=== PATIENT | female | born 1990 | race Caucasian/White ===

== ENCOUNTER 2020-05-02 08:52 | Emergency (ER) | payer OTHER ==
[~2020-05-02] VITALS: Ht 142.2 cm; Wt 77.8 kg
[2020-05-02] MEDS ORDERED: LAMO100T80 PO (09:05)
[2020-05-02] MEDS ORDERED: HYDR-3363 PO (09:05)
[2020-05-02] MEDS ORDERED: OMEP-218 PO (09:05)
[2020-05-02] MEDS ORDERED: QUET300T53 PO (09:05)
[2020-05-02] MEDS ORDERED: MELO15TA28 PO (09:05)
[2020-05-02] MEDS ORDERED: BENZ-52 PO (09:05)
[2020-05-02] MEDS ORDERED: TOPA100T12 PO (09:05)
[2020-05-02] MEDS ORDERED: KETOROLAC 30 MG/ML 1ML VIAL IV ONE (10:15)
[2020-05-02] MEDS ORDERED: NS 1,000 ML IV ONE (10:15)
[2020-05-02] MEDS ORDERED: ONDANSETRON 4MG/2ML VIAL IV ONE (10:15)
[2020-05-02 10:53] LABS: BASO # 0.1 10^3/uL (0.0-0.2); BASO % 0.5 % (0.0-1.0); EOS # 0.1 10^3/uL (0.0-0.5); EOS % 0.6 % (0.0-3.0); HEMATOCRIT 37.9 % (36.0-47.0); HEMOGLOBIN 12.2 g/dl (12.0-15.5); LYMPH % 19.4 % (24.0-44.0); MEAN CORPUSCULAR HEMOGLOBIN 26.1 pg (27.0-33.0); MEAN CORPUSCULAR HGB CONC 32.2 g/dl (32.0-36.5); MEAN CORPUSCULAR VOLUME 81.2 fl (80.0-96.0); MONO # 0.4 10^3/uL (0.0-0.8); MONO % 3.9 % (2.0-8.0); NEUTROPHILS # 7.7 10^3/uL (1.5-8.5); PLATELET COUNT, AUTOMATED 443 10^3/uL (150-450); RED BLOOD COUNT 4.67 10^6/uL (4.00-5.40); WHITE BLOOD COUNT 10.2 10^3/uL (4.0-10.0)
[2020-05-02] MEDS ORDERED: cefTRIAXone SOD 1 GM in D5W MINI-BAG PLUS 50 ML IV ONE (11:10)
[2020-05-02 11:15] LABS: ALBUMIN 3.8 GM/DL (3.2-5.2); ALT/SGPT 15 U/L (12-78); BILIRUBIN,DIRECT < 0.1 MG/DL (0.0-0.2); BILIRUBIN,TOTAL 0.2 MG/DL (0.2-1.0); BLOOD UREA NITROGEN 13 MG/DL (7-18); CARBON DIOXIDE LEVEL 21 MEQ/L (21-32); CHLORIDE LEVEL 113 MEQ/L (98-107); CREATININE FOR GFR 0.73 MG/DL (0.55-1.30); GLOMERULAR FILTRATION RATE > 60.0 (>60); GLUCOSE, FASTING 93 MG/DL (70-100); POTASSIUM SERUM 4.3 MEQ/L (3.5-5.1); SODIUM LEVEL 142 MEQ/L (136-145); TOTAL PROTEIN 7.1 GM/DL (6.4-8.2)
--- NOTE | 2020-05-02 11:42 | REP ---
INDICATION: right flank pain, dysuria (stone vs early pyelo). COMPARISON: None. TECHNIQUE: Multiple sonographic images of the kidneys bilaterally. FINDINGS: The right kidney measures 10.3 x 4.2 x 4.5 cm. Left kidney measures 10.5 x 4.6 x 5.2 cm. The kidneys are normal size. Renal cortical echogenicity is normal bilaterally. There are no renal calculi. There is no hydronephrosis. There are no solid or cystic renal masses. Bladder: The bladder is empty and cannot be evaluated. IMPRESSION: Essentially negative bilateral renal ultrasound. No renal calculi are identified. There is no hydronephrosis. No solid or cystic renal masses are identified. <Electronically signed by Vincent Taylor > 05/02/20 [id number]
[2020-05-02] MEDS ORDERED: CEFD1CAP8 PO (12:23)
[2020-05-02 12:37] VITALS: BP 103/59
== END 2020-05-02 13:15 | disposition home or self-care (01) ==
LOC: M ED 08:52
DX: N39.0 Urinary tract infection, site not specified (principal); N10 Acute pyelonephritis; Z79.899 Other long term (current) drug therapy
CPT/HCPCS: 36415; 76775; 80048; 80076; 81001; 85025; 87088; 87186; 96361; 96365; 96366; 96375; 99284; J0696; J1885; J2405

== ENCOUNTER 2020-05-03 16:13 | Emergency (ER) | payer OTHER ==
[~2020-05-03] VITALS: Ht 142.2 cm; Wt 77.8 kg
[~2020-05-03 16:13] MED LIST: BENZ-52 PO; CEFD1CAP8 PO; HYDR-3363 PO; LAMO100T80 PO; MELO15TA28 PO; OMEP-218 PO; QUET300T53 PO; TOPA100T12 PO
[2020-05-03 19:13] LABS: BASO # 0.1 10^3/uL (0.0-0.2); BASO % 0.5 % (0.0-1.0); EOS # 0.1 10^3/uL (0.0-0.5); EOS % 0.7 % (0.0-3.0); HEMATOCRIT 34.9 % (36.0-47.0); HEMOGLOBIN 11.1 g/dl (12.0-15.5); LYMPH # 2.3 10^3/uL (1.5-5.0); LYMPH % 16.1 % (24.0-44.0); MEAN CORPUSCULAR HEMOGLOBIN 25.8 pg (27.0-33.0); MEAN CORPUSCULAR HGB CONC 31.8 g/dl (32.0-36.5); MEAN CORPUSCULAR VOLUME 81.2 fl (80.0-96.0); MONO # 0.6 10^3/uL (0.0-0.8); MONO % 4.6 % (2.0-8.0); NEUTROPHILS # 10.9 10^3/uL (1.5-8.5); NEUTROPHILS % 77.5 % (36.0-66.0); PLATELET COUNT, AUTOMATED 377 10^3/uL (150-450)
[2020-05-03 19:39] LABS: HCG, SERUM QUALITATIVE NEGATIVE (NEGATIVE)
[2020-05-03 19:48] LABS: ALBUMIN 3.4 GM/DL (3.2-5.2); ALT/SGPT 14 U/L (12-78); BILIRUBIN,DIRECT < 0.1 MG/DL (0.0-0.2); BILIRUBIN,TOTAL 0.2 MG/DL (0.2-1.0); BLOOD UREA NITROGEN 13 MG/DL (7-18); CALCIUM LEVEL 8.1 MG/DL (8.5-10.1); CARBON DIOXIDE LEVEL 20 MEQ/L (21-32); CHLORIDE LEVEL 114 MEQ/L (98-107); CREATININE FOR GFR 1.04 MG/DL (0.55-1.30); GLOMERULAR FILTRATION RATE > 60.0 (>60); GLUCOSE, FASTING 78 MG/DL (70-100); SODIUM LEVEL 143 MEQ/L (136-145); THYROID STIMULATING HORMONE 0.261 uIU/ML (0.358-3.740); TOTAL PROTEIN 6.3 GM/DL (6.4-8.2)
[2020-05-03] MEDS ORDERED: ONDANSETRON 4MG/2ML VIAL IV ONE (19:55)
[2020-05-03] MEDS ORDERED: MORPHINE 4 MG/ML 1ML VIAL/SYRINGE (J2270) IV PRN (19:55)
--- NOTE | 2020-05-03 20:37 | ECGEPIP ---
[facility] - ED Test Date: 2020-05-03 Pat Name: KURT PAUL Department: Room: - Gender: Female [employer]ist: LARISSA : 1990 Requested By: NAHOMI Valentine Order Number: [id number] Reading MD: Alejo Figueroa Measurements Intervals [place] Rate: 59 P: 14 CT: 142 QRS: 61 QRSD: 90 T: 52 QT: 416 QTc: 411 Interpretive Statements Sinus bradycardia with marked sinus arrhythmia NO PRIORS FOR COMPARISON Electronically Signed on 05-03-2020 20:37:50 EDT by Alejo Figueroa
--- NOTE | 2020-05-03 21:10 | REPVR ---
PROCEDURE INFORMATION: Exam: CT Abdomen And Pelvis Without Contrast Exam date and time: 05/03/2020 8:06 PM Age: 29 years old Clinical indication: Abdominal pain; Flank; Right; Additional info: Right flank pain, dysuria TECHNIQUE: Imaging protocol: Computed tomography of the abdomen and pelvis without contrast. Radiation optimization: All CT scans at this facility use at least one of these dose optimization techniques: automated exposure control; mA and/or kV adjustment per patient size (includes targeted exams where dose is matched to clinical indication); or iterative reconstruction. COMPARISON: RENAL US 05/02/2020 11:22 AM FINDINGS: Liver: Normal. No mass. Gallbladder and bile ducts: There has been prior cholecystectomy. No biliary duct dilation. Pancreas: Normal. No ductal dilation. Spleen: Normal. No splenomegaly. Adrenal glands: Normal. No mass. Kidneys and ureters: Several punctate calyceal calculi in the both kidneys. There is an obstructing 2-3 mm calculus in the proximal right ureter with mild right hydronephrosis and perinephric/periureteral edema. No hydronephrosis on the left. Stomach and bowel: Unremarkable. No obstruction. No mucosal thickening. Appendix: No evidence of appendicitis. Intraperitoneal space: Unremarkable. No free air. No significant fluid collection. Vasculature: Unremarkable. No abdominal aortic aneurysm. Lymph nodes: Unremarkable. No enlarged lymph nodes. Urinary bladder: Unremarkable as visualized. Reproductive: Unremarkable as visualized. Bones/joints: Unremarkable. No acute fracture. Soft tissues: Unremarkable. IMPRESSION: 1. Mild right hydronephrosis with obstructing 2-3 mm calculus in the proximal right ureter. 2. Nonobstructing calyceal stones in both kidneys. Electronically signed by: Kevin Gomez On 05/03/2020 21:10:53 PM
--- NOTE | 2020-05-03 21:12 | REPVR ---
PROCEDURE INFORMATION: Exam: XR Chest Exam date and time: 05/03/2020 8:14 PM Age: 29 years old Clinical indication: Chest pain; Additional info: Altered mental status TECHNIQUE: Imaging protocol: XR of the chest Views: 2 views. COMPARISON: No relevant prior studies available. FINDINGS: Lungs: Unremarkable. No consolidation. Pleural spaces: Unremarkable. No pleural effusion. No pneumothorax. Heart/Mediastinum: Unremarkable. No cardiomegaly. Bones/joints: Unremarkable. IMPRESSION: No acute findings. Electronically signed by: Kevin Gomez On 05/03/2020 21:12:07 PM
[2020-05-03 23:01] LABS: APPEARANCE, URINE HAZY (CLEAR); BACTERIA, URINE AUTO NEGATIVE (NEGATIVE); BILIRUBIN, URINE AUTO NEGATIVE (NEGATIVE); BLOOD, URINE BLOOD 2+ (NEGATIVE); COLOR, URINE YELLOW (YELLOW); GLUCOSE, URINE (UA) AUTO NEGATIVE (NEGATIVE); KETONE, URINE AUTO NEGATIVE (NEGATIVE); LEUKOCYTE ESTERASE, URINE AUTO TRACE (NEGATIVE); MUCUS, URINE SMALL (NEGATIVE); NITRITE, URINE AUTO NEGATIVE (NEGATIVE); PROTEIN, URINE AUTO NEGATIVE (NEGATIVE); RBC, URINE AUTO 12 /HPF (0-3); SPECIFIC GRAVITY URINE AUTO 1.011 (1.002-1.035); SQUAMOUS EPITHELIAL CELL UR AU 7 /HPF (0-6); UROBILINOGEN, URINE AUTO 0.2 mg/dL (0.0-2.0); WBC, URINE AUTO 6 /HPF (0-3)
[2020-05-04] MEDS ORDERED: OXYCODONE/APAP 5MG/325MG(BULK FOR ED) 1 TABLET PO ONE
[2020-05-04] MEDS ORDERED: TAMSULOSIN 0.4 MG CAP PO ONE
[2020-05-04] MEDS ORDERED: PERC5TAB12 PO (00:02)
[2020-05-04] MEDS ORDERED: FLOM0.4C39 PO (00:02)
[2020-05-04 00:03] VITALS: BP 97/55
== END 2020-05-04 00:14 | disposition home or self-care (01) ==
LOC: M ED 16:13 → EDBD 16:13 → M ED 05-04 00:14
DX: N13.2 Hydronephrosis with renal and ureteral calculous obstruction (principal); R11.2 Nausea with vomiting, unspecified; R00.1 Bradycardia, unspecified; Z79.899 Other long term (current) drug therapy
CPT/HCPCS: 71046; 74176; 80047; 80048; 80076; 81001; 84443; 84702; 84703; 85025; 93005; 93041; 94760; 96374; 96375; 99285; J2270; J2405

== ENCOUNTER 2022-02-22 00:02 | Emergency (ER) | payer OTHER ==
[~2022-02-22] VITALS: Ht 142.2 cm; Wt 81.8 kg
[~2022-02-22 00:02] MED LIST changes: -CEFD1CAP8 PO; +CEFD300C41 PO; +FLOM0.4C39 PO; +OMEP-173 PO; -OMEP-218 PO; +PERC5TAB12 PO; -QUET300T53 PO; +QUET300T93 PO
[2022-02-22 00:43] LABS: HEMATOCRIT 36.6 % (36.0-47.0); HEMOGLOBIN 11.6 g/dl (12.0-15.5); MEAN CORPUSCULAR HEMOGLOBIN 26.3 pg (27.0-33.0); MEAN CORPUSCULAR HGB CONC 31.7 g/dl (32.0-36.5); PLATELET COUNT, AUTOMATED 398 10^3/uL (150-450); RED BLOOD COUNT 4.41 10^6/uL (4.00-5.40); WHITE BLOOD COUNT 10.7 10^3/uL (4.0-10.0)
[2022-02-22 01:04] LABS: ETHYL ALCOHOL (ETHANOL) 0.003 % (0.000-0.010); HCG, SERUM QUALITATIVE NEGATIVE (NEGATIVE)
[2022-02-22 01:05] LABS: ACETAMINOPHEN LEVEL < 2.0 UG/ML (10.0-20.0); BILIRUBIN,DIRECT < 0.1 MG/DL (<0.4); SALICYLATE LEVEL < 3.0 MG/DL (<30)
[2022-02-22 01:06] LABS: ALKALINE PHOSPHATASE 96 U/L (46-116); ALT/SGPT 14 U/L (7.0-40); AST/SGOT 15 U/L (<34); BILIRUBIN,TOTAL < 0.2 MG/DL (0.3-1.2); BLOOD UREA NITROGEN 16 MG/DL (9-23); CALCIUM LEVEL 9.1 MG/DL (8.5-10.1); CARBON DIOXIDE LEVEL 23 MMOL/L (20-31); CHLORIDE LEVEL 110 MMOL/L (98-107); CREATININE FOR GFR 0.88 MG/DL (0.55-1.30); GLOMERULAR FILTRATION RATE > 60.0 (>60); GLUCOSE, FASTING 103 MG/DL (60-100); POTASSIUM SERUM 3.8 MMOL/L (3.5-5.1); SODIUM LEVEL 142 MMOL/L (136-145)
[2022-02-22 01:07] LABS: THYROID STIMULATING HORMONE 1.298 uIU/ML (0.55-4.78)
[2022-02-22 01:23] LABS: RSV AMPLIFICATION NEGATIVE (NEGATIVE)
[2022-02-22] MEDS ORDERED: LAMO200T3 PO ×2 (02:29)
[2022-02-22] MEDS ORDERED: BENZ0.5T23 PO (02:29)
[2022-02-22] MEDS ORDERED: HYDR-3363 PO ×2 (02:29)
[2022-02-22] MEDS ORDERED: QUET300T2 PO (02:33)
[2022-02-22] MEDS ORDERED: PRAZ1CAP46 PO (02:33)
[2022-02-22] MEDS ORDERED: TOPI100T9 PO (02:33)
[2022-02-22] MEDS ORDERED: HOME MED LIST COMPLETE! XX SCH ×2 (02:35)
[2022-02-22 02:50] LABS: AMPHETAMINES LEVEL URINE NEGATIVE (NEGATIVE); BARBITURATES URINE NEGATIVE (NEGATIVE); BENZODIAZEPINES URINE NEGATIVE (NEGATIVE); COCAINE METABOLITE URINE NEGATIVE (NEGATIVE); METHADONE URINE NEGATIVE (NEGATIVE); OPIATES URINE NEGATIVE (NEGATIVE); PHENCYCLIDINE URINE NEGATIVE (NEGATIVE)
[2022-02-22 02:55] LABS: CANNABINOIDS URINE POSITIVE (NEGATIVE)
[2022-02-22 02:58] LABS: APPEARANCE, URINE MANUAL CLEAR (CLEAR); BILIRUBIN, URINE MANUAL NEGATIVE (NEGATIVE); BLOOD URINE MANUAL POSITIVE (NEGATIVE); COLOR, URINE MANUAL YELLOW (YELLOW); GLUCOSE, URINE (UA) MANUAL NEGATIVE (NEGATIVE); KETONE, URINE MANUAL NEGATIVE (NEGATIVE); LEUKOCYTE ESTERASE, URINE MAN NEGATIVE (NEGATIVE); NITRITE, URINE MANUAL NEGATIVE (NEGATIVE); PROTEIN, URINE MANUAL NEGATIVE (NEGATIVE); UROBILINOGEN, URINE MANUAL NORMAL (NORMAL)
[2022-02-22 03:07] LABS: SQUAMOUS EPITHELIAL CELL URINE SMALL AMOUNT /hpf (SMALL AMT)
[2022-02-22 03:08] LABS: BACTERIA, URINE SMALL AMOUNT; HYALINE CAST, URINE NONE SEEN /lpf (0-1); MUCUS, URINE SMALL AMOUNT (NEGATIVE)
[2022-02-22] MEDS ORDERED: ACETAMINOPHEN TAB 650MG DOSE (2X325MG) PO ONE (07:50)
[2022-02-22] MEDS ORDERED: BENZTROPINE 0.5 MG TAB PO SCH (09:00)
[2022-02-22] MEDS ORDERED: lamoTRIgine 100MG TAB PO SCH ×2 (09:00→21:00)
[2022-02-22 16:52] VITALS: BP 117/66
[2022-02-22] MEDS ORDERED: TOPIRAMATE (TopAMAX) 100 MG TAB PO SCH (21:00)
[2022-02-22] MEDS ORDERED: PRAZOSIN 1 MG CAP PO SCH (21:00)
[2022-02-22] MEDS ORDERED: QUEtiapine FUMARATE 50MG TAB PO SCH (21:00)
[2022-02-22] MEDS ORDERED: TOPIRAMATE (TopAMAX) 25 MG TAB PO SCH (21:00)
== END 2022-02-22 16:56 ==
LOC: EDBD 00:02 → M ED 00:02
DX: R45.851 Suicidal ideations (principal); F32.A Depression, unspecified; F31.9 Bipolar disorder, unspecified; F43.10 Post-traumatic stress disorder, unspecified; F12.10 Cannabis abuse, uncomplicated; Z79.811 Long term (current) use of aromatase inhibitors; Z79.899 Other long term (current) drug therapy

== ENCOUNTER 2022-12-27 11:03 | Emergency (ER) | payer OTHER ==
[~2022-12-27] VITALS: Ht 142.2 cm; Wt 87.9 kg
[~2022-12-27 11:03] MED LIST changes: -BENZ-52 PO; +BENZ0.5T2 PO; +BENZ1TAB5 PO; -CEFD300C41 PO; +CEFD300C42 PO; +LAMO200T3 PO; +PRAZ1CAP46 PO; +QUET300T2 PO; +TOPI100T9 PO
[2022-12-27] MEDS ORDERED: NS 1,000 ML IV ONE (15:10)
[2022-12-27] MEDS ORDERED: diphenhydrAMINE 50MG/ML VIAL IV ONE (15:10)
[2022-12-27] MEDS ORDERED: PROCHLORPERAZINE 10MG 2ML VIAL IV ONE (15:10)
[2022-12-27] MEDS ORDERED: KETOROLAC 30 MG/ML 1ML VIAL IV ONE (15:10)
[2022-12-27 15:38] LABS: BASO # 0.1 10^3/uL (0.0-0.2); BASO % 1.1 % (0.0-1.0); EOS # 0.2 10^3/uL (0.0-0.5); EOS % 2.8 % (0.0-3.0); HEMATOCRIT 37.2 % (36.0-47.0); HEMOGLOBIN 11.9 g/dl (12.0-15.5); LYMPH # 2.5 10^3/uL (1.5-5.0); LYMPH % 30.7 % (24.0-44.0); MEAN CORPUSCULAR HEMOGLOBIN 26.2 pg (27.0-33.0); MEAN CORPUSCULAR VOLUME 81.8 fl (80.0-96.0); MONO # 0.3 10^3/uL (0.0-0.8); MONO % 4.1 % (2.0-8.0); NEUTROPHILS % 60.7 % (36.0-66.0); PLATELET COUNT, AUTOMATED 403 10^3/uL (150-450); RED BLOOD COUNT 4.55 10^6/uL (4.00-5.40); WHITE BLOOD COUNT 8.2 10^3/uL (4.0-10.0)
[2022-12-27 15:56] LABS: ERYTHROCYTE SEDIMENTATION RATE 30 mm/hr (0-20)
[2022-12-27 16:13] LABS: C REACTIVE PROTEIN QUANTITATIV 1.7 MG/DL (<1.0); MAGNESIUM LEVEL 2.1 MG/DL (1.8-2.4)
[2022-12-27] MEDS ORDERED: methocarbamoL 500 MG TAB PO ONE (16:50)
[2022-12-27] MEDS ORDERED: RIZA10TA64 PO (18:14)
[2022-12-27 18:30] VITALS: BP 110/69; TEMP 98.8; O2SAT 99
== END 2022-12-27 18:43 | disposition home or self-care (01) ==
LOC: M ED 11:03
DX: G44.209 Tension-type headache, unspecified, not intractable (principal); Z87.891 Personal history of nicotine dependence
CPT/HCPCS: 70450; 80047; 83735; 85025; 85652; 86140; 96361; 96374; 96375; 99284; J0780; J1100; J1200; J1885